=== PATIENT | female | born 1960 | race Caucasian/White ===

== ENCOUNTER 2018-08-09 15:03 | Inpatient (IN) ==
[2018-08-09 15:09] VITALS: BMI 25.0
[2018-08-09] MEDS ORDERED: ZOFRAN 4 MG/2 ML IM STA (15:56)
[2018-08-09] MEDS ORDERED: MORPHINE 4 MG/ML SYRINGE IM STA (15:56)
--- NOTE | 2018-08-09 17:03 | CT ---
EXAM: CT soft tissue neck without contrast HISTORY: Neck pain. The patient with tooth pain. COMPARISON: Same day CT chest abdomen and pelvis TECHNIQUE: Serial axial images of the soft tissues of the neck were obtained without contrast. Thes e were viewed in multiple planes. FINDINGS: There is scattered mucosal thickening of the paranasal sinuses. Limited views of the intra cranial contents are unremarkable. The parotid and submandibular glands are normal. Nasal and oroph arynx are normal. The epiglottis is normal. Airway is patent. The thyroid is unremarkable. There is mild atherosclerotic disease of the visualized arteries. The lungs demonstrate emphysematous dise ase. These are better evaluated on same day CT chest. The osseous structures demonstrate mild degen erative disease. Limited evaluation of the teeth demonstrates no discrete abnormality. The mandible and maxilla are n ormal without cyst or cortical disruption. IMPRESSION: 1. No acute abnormality of the neck to account for patient's symptoms. 2. Paranasal sinus mucosal thickening. 3. Scattered mild degenerative disease of the cervical spine.
--- NOTE | 2018-08-09 17:03 | CT ---
Exam: CT scan of the abdomen pelvis without contrast. Date: 08/09/2018. Comparison: None. HISTORY: Vomiting chills and fever since yesterday. TECHNIQUE: Helical scan of the abdomen pelvis was performed without contrast. FINDINGS: The lung bases are clear. Degenerative changes are seen at L4-5. The bony pelvis is with in normal limits. The spleen and liver have a uniform attenuation. There is a 1.8 x 1.1 cm simple cyst in the left lob e of the liver. A cholecystectomy is noted. The stomach, pancreas and adrenal glands are normal. K idneys have a normal morphology. No calculi or hydronephrosis is seen. No retroperitoneal adenopath y is present. Aorta has peripheral calcification and does not exceed 3 cm. The small bowel is yo l. The colon, pelvic sidewall and bladder are normal. There is no free pelvic fluid. Hysterectomy has been performed. The rectum inguinal regions are normal. Impression: No acute findings in the abdomen or pelvis. Hysterectomy and cholecystectomy. Simple left hepatic cyst.
--- NOTE | 2018-08-09 17:06 | CT ---
EXAM: CT chest without contrast. HISTORY: Cough. PROCEDURE: Contiguous axial CT images of the chest without contrast with coronal and sagittal reform ats. FINDINGS: The heart is within normal limits in size. The thoracic aorta is within normal limits in d iameter. There are mild emphysematous changes in the upper lobes. No infiltrate or consolidation. There are degenerative changes in the spine. There are no acute findings in the visualized portion o f the abdomen. Impression: Mild chronic obstructive pulmonary disease.
[2018-08-09] MEDS ORDERED: ZESTRIL PO STA (17:24)
--- NOTE | 2018-08-09 18:14 | ED.PDOC ---
General ED Provider: Dr. ZACK PATTERSON Chief Complaint: Nausea/Vomiting Stated Complaint: chest pain high blood pressure chest discomfort Time Seen by Physician: 15:00 Mode of Arrival: Walk-In Information Source: Patient Exam Limitations: No limitations Nursing and Triage Documentation Reviewed and Agree: Yes Does patient meet sepsis criteria?: No System Inflammatory Response Syndrome: Not Applicable Sepsis Protocol: For patient's 13 years and over: Temp is 96.8 and below OR 101 and greater Pulse >90 BPM Resp >20/minute Acutely Altered Mental Status Are patient's symptoms suggestive of a new infection, such as: -Pneumonia -Skin, Soft Tissue -Endocarditis -UTI -Bone, Joint Infection -Implantable Device -Acute Abdominal Infection -Wound Infection -Meningitis -Blood Stream Catheter Infection -Unknown Cardiovascular Complaint Exam - Chest Pain Complaint/Exam Onset: Gradual Duration: 1 day Symptoms Are: Still present Timing: Constant Length of Chest Pain Episodes: all day Initial Severity: Moderate Current Severity: Mild Location: Reports: Discrete, Midsternal Pain Radiates: Reports: None (neck/ throat) Character: Reports: Aching Aggravating: Reports: None Alleviating: Reports: Spontaneous resolution Associated Signs and Symptoms: Reports: Nausea, Cough. Denies: Diaphoresis, Vomiting, Fever, Palpitations, Hemoptysis, Back pain, Abdominal pain, Dizziness , Short of air, Calf pain, Calf swelling Related History: Reports: Similar episode Related Surgical History: Reports: None History of Healthcare-Acquired Pneumonia: Reports: No AMI/ACS Risk Factors: Reports: None TAD Risk Factors: Reports: None Pulmonary Embolism Risk Factors: Reports: None Prior Care for this Complaint: No Recent Stress Test: No Recent Echo/LV Function: No JVD Present: No Subcutaneous Emphysema Present: No Diminshed Breath Sounds: No Reproducible Chest Wall Pain: No Bilateral Pulses Present: Yes Unequal Pulses Noted: No Review of Systems - Review Of Systems Constitutional: Reports: Malaise Eyes: Reports: No symptoms Ears, Nose, Mouth, Throat: Reports: Throat pain Respiratory: Reports: No symptoms Cardiac: Reports: Chest pain GI: Reports: No symptoms : Reports: No symptoms Musculoskeletal: Reports: No symptoms Skin: Reports: No symptoms Neurological: Reports: No symptoms Endocrine: Reports: No symptoms Hematologic/Lymphatic: Reports: No symptoms All Other Systems: Reviewed and Negative Past Medical History - Past Medical History Previously Healthy: Yes Endocrine: Reports: None Cardiovascular: Reports: None Respiratory: Reports: None Hematological: Reports: None Gastrointestinal: Reports: None Genitourinary: Reports: None Neuro/Psych: Reports: None Musculoskeletal: Reports: None Cancer: Reports: None Last Menstrual Period: HYSTERECTOMY - Surgical History General Surgical History: Reports: None - Family History Family History: Reports: None - Social History Smoking Status: Former smoker Hx Substance Use: Yes (MARIJUANA) Alcohol Screening: None - Immunizations Tetanus Shot up to Date: No Physical Exam - Physical Exam Appearance: Well-appearing, No pain distress, Well-nourished Eyes: BETTINA, EOMI, Conjunctiva clear ENT: Ears normal, Nose normal, Oropharynx normal Respiratory: Airway patent, Breath sounds clear, Breath sounds equal, Respirations nonlabored Cardiovascular: RRR, Pulses normal, No rub, No murmur GI/: Soft, Nontender, No masses, Bowel sounds normal, No Organomegaly Musculoskeletal: Normal strength, ROM intact, No edema, No calf tenderness Skin: Warm, Dry, Normal color Neurological: Sensation intact, Motor intact, Reflexes intact, Cranial nerves intact, Alert, Oriented Psychiatric: Affect appropriate, Mood appropriate Interpretation - Radiology Interpretation Radiology Interpretation By: Radiologist Radiology Results: No acute changes Exam Interpreted: CT Scan Re-Evaluation - Re-Evaluation Time of Re-Evaluation: 16:00 Status: Improved Vital Signs Stable: Yes Pain Level: 0 Appearance: NAD Lungs: Clear Skin: Warm and Dry Neuro: Alert and Oriented X3 CV: RRR - Re-Evaluation Time of Re-Evaluation: 18:18 Status: Improved Vital Signs Stable: Yes Pain Level: 0 Appearance: NAD Skin: Warm and Dry Neuro: Alert and Oriented X3 CV: RRR (labs/ admission, imaging discussed) Physician Notification - Case Discussed Physician Notified: tee Time of Notification: 18:20 Admit/Transition Orders Entered by ED Provider: Yes Admit To: Inpatient Critical Care Note - Critical Care Note Total Time (mins): 0 Course - Course Hematology/Chemistry: 08/09/18 16:09 08/09/18 16:09 Orders, Labs, Meds: Lab Review 08/09/18 08/09/18 08/09/18 16:09 16:09 16:09 WBC 6.76 RBC 4.57 Hgb 14.8 Hct 43.7 MCV 95.6 MCH 32.4 H MCHC 33.9 RDW Coeff of Nataliia 13.1 Plt Count 291 Immature Gran % (Auto) 0.3 Neut % (Auto) 85.9 Lymph % (Auto) 11.7 Trigg % (Auto) 1.9 Eos % (Auto) 0.1 Baso % (Auto) 0.1 Immature Gran # (Auto) 0.0 Neut # (Auto) 5.8 Lymph # (Auto) 0.8 Trigg # (Auto) 0.1 L Eos # (Auto) 0.0 Baso # (Auto) 0.0 Puncture Site O2 Saturation ABG pH ABG pCO2 ABG pO2 ABG HCO3 ABG Total CO2 ABG Base Excess FiO2 % Sodium 139.7 Potassium 3.93 Chloride 102.8 Carbon Dioxide 20.4 L Anion Gap 20.43 BUN 17.2 H Creatinine 0.81 Estimated GFR (MDRD) 73.00 BUN/Creatinine Ratio 21.23 Glucose 146.2 H Lactic Acid Calcium 9.56 Total Bilirubin 0.61 AST 30.0 ALT 22.7 Alkaline Phosphatase 91.9 Total Creatine Kinase 31.5 Troponin I < 0.012 Total Protein 8.55 H Albumin 4.90 Globulin 3.65 Albumin/Globulin Ratio 1.34 Procalcitonin < 0.05 Urine Color Urine Clarity Urine pH Ur Specific [place] Urine Protein Urine Glucose (UA) Urine Ketones Urine Blood Urine Nitrite Urine Bilirubin Urine Urobilinogen Ur Leukocyte Esterase Urine Microscopic RBC Ur Squamous Epith Cells Urine Mucus 08/09/18 08/09/18 08/09/18 16:09 17:24 17:41 WBC RBC Hgb Hct MCV MCH MCHC RDW Coeff of Nataliia Plt Count Immature Gran % (Auto) Neut % (Auto) Lymph % (Auto) Trigg % (Auto) Eos % (Auto) Baso % (Auto) Immature Gran # (Auto) Neut # (Auto) Lymph # (Auto) Trigg # (Auto) Eos # (Auto) Baso # (Auto) Puncture Site Rr O2 Saturation 96.0 ABG pH 7.411 ABG pCO2 31.2 L ABG pO2 80.0 L ABG HCO3 19.8 L ABG Total CO2 21 L ABG Base Excess -5 L FiO2 % 21.0 Sodium Potassium Chloride Carbon Dioxide Anion Gap BUN Creatinine Estimated GFR (MDRD) BUN/Creatinine Ratio Glucose Lactic Acid 2.86 H Calcium Total Bilirubin AST ALT Alkaline Phosphatase Total Creatine Kinase Troponin I Total Protein Albumin Globulin Albumin/Globulin Ratio Procalcitonin Urine Color Yellow Urine Clarity Clear Urine pH 5.5 Ur Specific [place] >=1.030 Urine Protein 2+ Urine Glucose (UA) Negative Urine Ketones 2+ Urine Blood 2+ Urine Nitrite Negative Urine Bilirubin 1+ Urine Urobilinogen 0.2 Ur Leukocyte Esterase Negative Urine Microscopic RBC 5-10 Ur Squamous Epith Cells 30-50 Urine Mucus 2+ Orders Category Date Time Status ABG DRAW REQUEST Stat CARDIO 08/09/18 17:24 Completed EKG-(ED ONLY) Stat CARDIO 08/09/18 15:57 Completed ABG Stat LAB 08/09/18 17:24 Completed BLOOD CULTURE Stat LAB 08/09/18 16:45 Received CBC W/ AUTO DIFF Stat LAB 08/09/18 16:09 Completed COMPREHENSIVE METABOLIC PANEL Stat LAB 08/09/18 16:09 Completed CREATINE KINASE Stat LAB 08/09/18 16:09 Completed LACTIC ACID Stat LAB 08/09/18 16:09 Completed PROCALCITONIN Stat LAB 08/09/18 16:09 Completed RAPID STREP SCREEN [MOLECULAR GROUP A STREP] Stat LAB 08/09/18 16:20 Completed TROPONIN I Stat LAB 08/09/18 16:09 Completed URINALYSIS C & S IF INDICATED Stat LAB 08/09/18 17:41 Completed Lisinopril [Zestril] MEDS 08/09/18 17:24 Discontinued 40 mg PO ONCE STA Morphine Sulfate [Morphine 4 mg/ml Syringe] MEDS 08/09/18 15:56 Discontinued 4 mg IM ONCE STA Ondansetron HCl/Pf [Zofran 4 mg/2 ml] MEDS 08/09/18 15:56 Discontinued 4 mg IM ONCE STA CT ABDOMEN/PELVIS WO CONTRAST Stat RADS 08/09/18 15:[address] CHEST W/O CONTRAST Stat RADS 08/09/18 15:[address] SOFT TISSUE NECK W/O CONTR Stat RADS 08/09/18 15:56 Completed Medications Discontinued Medications Generic Name Dose Route Start Last Admin Trade Name Freq PRN Reason Stop Dose Admin Lisinopril 40 mg 08/09/18 17:24 08/09/18 17:30 Zestril PO 08/09/18 17:25 40 mg ONCE STA Administration Morphine Sulfate 4 mg 08/09/18 15:56 08/09/18 16:04 Morphine 4 Mg/Ml Syringe IM 08/09/18 15:57 4 mg ONCE STA Administration Ondansetron HCl 4 mg 08/09/18 15:56 08/09/18 16:04 Zofran 4 Mg/2 Ml IM 08/09/18 15:57 4 mg ONCE STA Administration Vital Signs: Temp Pulse Resp BP Pulse Ox 08/09/18 17:49 189/95 H 08/09/18 17:46 78 13 183/112 H 96 08/09/18 15:04 100 F H 68 18 181/107 H 97 LAURO Risk Score LAURO Risk Score: Risk Score Odds of by 30D 0 0.1 (0.1-0.2) 1 0.3 (0.2-0.3) 2 0.4 (0.3-0.5) 3 0.7 (0.6-0.9) 4 1.2 (1.0-1.5) 5 2.2 (1.9-2.6) 6 3.0 (2.5-3.6) 7 4.8 (3.8-6.1) Departure - Departure Time of Disposition: 18:19 Disposition: ADMITTED INPATIENT Discharge Problem: Hypertension, Chest pain Instructions: Chest Pain (ED) Condition: Good Pt referred to PMD for follow-up: Yes IPMP verified?: No Additional Instructions: Please call your Family Physician as soon as possible to schedule a follow-up appointment. Allergies/Adverse Reactions: Allergies No Known Allergies Allergy (Unverified 08/09/18 15:11) Home Medications: Ambulatory Orders Diazepam 10 mg PO QID #100 05/28/18 Estrogen,Starr/Me-Testosterone [Eemt Ds 1.25-2.5 Mg Tablet] 1 each PO DAILY #30 07/30/18 Dicyclomine HCl [Bentyl] 10 mg PO PRN PRN 08/09/18 Sertraline HCl [Zoloft] 200 mg PO DAILY 08/09/18 Disposition Discussed With: Patient, Family
[2018-08-09] MEDS ORDERED: NORVASC PO STA ×2 (18:23→19:10)
--- NOTE | 2018-08-09 19:13 | PCM ---
- Chief Complaint Chief Complaint: Nausea, Vomiting, Elevated blood pressure Stage 2 without diagnosis of HTN, Chest pain, Dental Pain. - History of Present Illness History of Present Illness: 58 yo WF without PCP follows with DR. Dominique ~q 3 months. Last OV 07/30/18 w/ Dr. Dominique had CC of Nasal congestion/ear congestion, refill of meds. She got her Valium 10mg QID #100, Est/test, zoloft 100 BID refilled, had her right ear cerumen removed via suction and was dx w/ vertigo, intractable PADGETT and given augmentin 875/125 1 po BID x 10 days, refills as listed above and instructed to return call in 3 months. Presented to our ED 08/09/18 15:[address] Conrad. Presented with CC of N/V, chest pain HTN and chest discomfort. 1 day history constant pain, moderate severity initially reducing to mild severity. Midsternal, pain radiated into neck/throat. Aching character, nothing has made this worse, spontaneous resolution noted in ER. Reported nausea, cough, no diaphoresis, vomiting, fever, palpitations, hemoptysis, back pain, abd pain, dizzines, SOA, leg/calf pain/swelling. She has had something liek this beore. Malaise, throat pain, chest pain. History of marijuana use. Phys exam in ER noted well appearing, no pain/distress, normal CV, normal Resp exam. Normal MSK , normal Neuro and normal psych. CT of chest w/o mild COPD. DDD w/in spine. CT of Abd/pelvis w/o: Lung bases clear, DDD L4-5. Normal pelvis. No acute findings in abd/pelvis, small hepatic cyst. S/P Hysterectomy, Susannah. Simple left liver cyst. CT scan of the soft tissues neck w/o contrast: No acute abnl of neck to account for patient sx. Scattered DDD w/in cervical spine. Paranasal mucousal thickening. She just completed 10 days course of augmentin as listed above. RE-evaluated by Dr. Conrad 1600 improved noted VS stable, pain level 0, no issues. Re-eval 18:18 status listed as improved, VS stable (but vitals within computer noted that her BP remained >180SBP). REviewed labs from ER. CBC WNL WBC 6.76, Hgb 14.8, hct 43.7, plt 291. CMP normal sodium 139.7, K + nl 3.93, cl 102,8, co2 20.4, gap 20.43. BUN 17.2, cr 0.81. GFR 73. Glucose 146.2. Calcium normal 9.56, ast 30, alt 22.7, alk phos nomfal 91.9. CK noraml 31.5. Troponin #1 was negative. Procalcitonin was negative. Blood cultures ordered/pending. Lactic acid was elevated at 2.86. Urine Mildly concentrated with SG 1.030, 2+ glu, 2+ ketones, 2+ blood, LE negative, squam 30-50, 2+ mucus. We will send urine for culture. ABG in ER showed O2 96%, pH 7.411, pc02 31.2, po2 80, hc03 19.8. ABG favors primary respiratory alkalosis chronic with secondary metabolic acidosis. No mention of ETOH. Due to markedly elevated BP she was given lisinopril 40mg stat, morphine sulfate 4mg im stat, zofran 4mg IM stat and then norvasc 5 stat. Vitals in ER reviewed temp is 100 and technically not febrile. Pulse 68, RR 18, BP 181/107, pulse ox 97%. Repeated at 17:46 and pulse 78, RR 13, BP 183/112, pulse ox 96%. Repeated BP again 17:49 and 189/95. She was admitted to inpatient. I will add clindamycin 300 QID, risks for C. Diff d/w patient. She was admitted to room 109-1. I reviewed nursing notes from ER, Dr. Conrad note, talked w/ Dr. Conrad personally , reviewed imaging, labs, previous note from DR. Dominique. Patient seen in room 109-1 7:30 PM (patient did not arrive until 830). The patient is in room with Jesus Altamirano today. 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 [facility] patient is from [facility] but living here locally after of father 1 year ago. She has been having issues for 1 year since of father, has issues with ailing health of mother. She misses her father. She moved here last yeasr. [place] of [facility] mother called them 1 year ago and noted father was sick. They moved here to be with father and could never go home due to of father and 08/2017. this was traumatic, she has been prominently anxious.They were able to sell their old home and bought a home here and then father before the patient was able to close on that home. The patient now has this home, they have updated this home. Mother hanna continues to have ailing problems. lost income. 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 She quit smoking 6 months ago. Uses marijuana last use of this 4 days ago. She has not had any issues with BP historically. She has had emesis and detnal pain. She was not able to mention a single item in the ER. Story in hospital bed suggests stress , anxiety, palpitations. She felt back pain, muscle aches, chills, sweating. Sx started yesterday am. No other sick contacts. We talked about her marijuana and she notes that this is from a reputable source. She has zofran ordered. She notes nausea persists. She had cardiac cath 3 years ago in [place]. She notes that she had murmurs valvular leaks. They found this when she was having similar symptoms. She noted phenergan suppository helped markedly. She does not drink ETOH. The patient talked about doctor shirley DRIVER. She did take the 10 day course of augmentin. She notes that PCN causes her to throw up. She has a bad tooth. This has been draining down back of throat. She has called dentist they think she can get in on . She hates augmentin, noted that it does not help but it was given to her. No Valium since yesterday. NO other symptoms reported today. Chest heaviness/pressure, anxiety is up. No pain, no aggravating/no ameliorating factors. No SOA. Dental pain / . No purulent drainage. Dry mouth. - Review of Systems Constitutional: chills, weakness, sweats, fatigue, loss of appetite. No: fever Eyes: No: blurred vision, double-vision, discharge, itching, pain, redness, photophobia, other Ears: No: pain, bleeding, drainage, ringing, hearing loss, other Nose: No: bleeding, congestion, discharge, other Throat: pain. No: swelling, voice change, other Mouth: other (dry). No: bleeding, pain, swelling Respiratory: No: cough, shortness of air, wheeze, hemoptysis, pain with breathing, other Cardiovascular: No: chest pain, left arm pain, diaphoresis, PND, orthopnea, edema, palpitations, syncope, other Gastrointestinal: abdominal pain, nausea, vomiting, diarrhea. No: other, melena , hematemesis, hematochezia, dysphagia, constipation Genitourinary: No: dysuria, hematuria, frequency, incontinence, flank pain, vaginal discharge, abnormal bleeding, pelvic pain, other Neurological: dizziness. No: headache, seizure, numbness, weakness, speech difficulty, problems with walking, tremor, fainting, other Musculoskeletal: pain. No: swelling in joints, other Skin: rash (follicular rash groin). No: pruritus, lacerations, wounds, bruising , other Immunology: No: hives, itching, frequent infections, difficulty healing, other Hematology: No: easy bruising, easy bleeding, swollen glands, other Endocrine: No: weight changes, cold intolerance, heat intolerance, excessive thirst, excessive hunger, polyuria, other Psychiatric: anxiety. No: depression, sleeplessness, hopelessness, suicidal, hallucinations, other Habits: substance use (marijuana) - Past Medical History Past Medical History: Anxiety (zoloft and valium QID). Marijuana use sporadically. History of jaw fracture on left. She has poor dentition. - Past Surgical History Past Surgical History: Susannah, appendectomy, hysterectomy, abdominal cyst removal. . Tonsillectomy. Corbin Neuroma - Allergies Allergies/Adverse Reactions: Allergies Allergy/AdvReac Type Severity Reaction Status Date / Time No Known Allergies Allergy Unverified 08/09/18 15:11 - Medications Medications: Medications Generic Name Dose Route Start Last Admin Trade Name Freq PRN Reason Stop Dose Admin Sodium Chloride 1,000 mls @ 75 mls/hr 08/09/18 18:30 Sodium Chloride IV .[id number] JULIENNE Non-Formulary Medication 10 mg 08/09/18 21:00 Diazepam [Diazepam] PO QID JULIENNE Non-Formulary Medication 200 mg 08/10/18 09:00 Sertraline Hcl [Zoloft] PO DAILY [facility] - Family History Past Family History: Mother: Anxiety, depression, CAD, HTN. Father: Depression , CAD, Emphysema/. No children. - Social History Past Social History: . Jesus lAtamirano. 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 - Body Composition Height: 5 ft 7 in Weight: 160 lb 0.889 oz Body Mass Index (BMI): 25.0 - Physical Examination HEENT: Constitutional: Appearance-No acute distress, Consistent with stated age. Orientation- Oriented x 3, alertGait-Normal pace, normal arm movement. Build and Nutrition-[normal] General- Patient is pleasant and cooperative with the interview and exam. Integumentary: General-No rashes, ulcers or lesions. Palpation- Normal skin moisture/turgor. Skin is warm to touch, appropriate. Capillary refill is normal bilateral Upper and lower extremity. Follicular eruption under breast on left, bilateral inner thigh. Nurse Smita present. Pubis shaved by patient. Follicular eruption there as well. Papular/vessicular eruption. The patient has no skin breakdown buttock, heels. No other skin issues. Tattoo lower back. Head/Neck: Head- normocephalic and atraumatic. Neck- without visible/palpable lumps or pulsations. Palpation- No bony tenderness about head/neck along frontal, occipital, temporal, parietal, mastoid, jawline, zygoma, orbit or any other location. NO temporal artery tenderness. No TMJ tenderness. Neck Supple. Thyroid-No thyromegaly, no nodules Eye: Bilaterally PERRLA, EOMI. No discharge. Upper and lower eyelids are normal. Sclera/conjunctiva normal without discharge. Cornea is normal and clear. Lens is normal. Eyeball appears normal. No ciliary flushing, no conjunctival injection. ENMT: Pinna- normal without tenderness or erythema. External auditory canal Left- normal without erythema or discharge, no excessive cerumen. External auditory canal Right-normal without erythema or discharge, no excessive cerumen. TM left- Heart/pearly, normal light reflex and anatomy TM Right- Heart/ pearly, normal light reflex and anatomy Hearing Assessment-normal to conversational speech. Nose and sinus- No sinus tenderness along frontal/ maxillary region. External appearance normal and midline. Nares- bilateral quiet airflow, no discharge. Nasal mucosa- No bleeding noted and no ulcerations observed. [place], moist. Turbinates non boggy. Lips- normal color, moist without cracks/lesions Oral Cavity/Palate- hard/soft palate intact without lesions, oral mucosa pink and moist. Dentition assessed and upper teeth appear capped. Lower teeth pain along mandibular molar. No obvious sores, no lesions. and discussed appropriate oral care. Tongue normal midline. Oropharynx- no pharyngeal erythema, Uvula midline. No post nasal drip. No exudate. Salivary glands- Non tender to palpation CHEST/LUNG: Inspection- symmetric chest wall no pectus deformity. Normal effort , no distress, no use of accessory muscles. Palpation- nontender sternum, ribline. No abnormal pulsations. Auscultation- Breath sounds normal throughout all lung krishnamurthy. Normal tracheal sounds, Normal bronchial sounds overlying sternum, Bronchovessicular sounds normal between scapulae posteriorly, Normal vessicular breath sounds heard throughout periphery. Lungs are clear today. Adventitious sounds- No wheezes, rales, rhonchi. CARDIOVASCULAR: Carotid artery- normal, no bruits or abnormal pulsations. Jugular vein- no pulsations. Palpation/Percussion- Normal PMI, no palpable thrill Auscultation- Regular rate and rhythm. No murmur noted in sitting, supine positions. Distant heart sounds, PMI not displaced. She reported history of murmurs. Prolonged S1 sounds and muffled S2 but no obvious murmur. No clicks, no fixed split etc. Extremities- no digital clubbing, cyanosis, edema, increased warmth. ABDOMEN: Inspection- normal and no visible pulsations. Normal contour. Auscultation- Bowel sounds hyperactive, no abdominal bruits. Palpation/ Percussion- soft, non-tender, no rebound tenderness, no rigidity (guarding), no jar tenderness, no masses. Liver-no hepatomegaly, Spleen no splenomegaly, Hernias- none. Rectal not examined. Peripheral Vascular: Upper extremity Left- Normal temperature with pink nailbeds and no ulcerations. Upper extremity Right- Normal temperature with pink nailbeds and no ulcerations. Lower extremity- Normal temperature with pink nailbeds and no ulcerations. DP pulses 2+ bilaterally. Pedal hair intact. Normal capillary refill. Edema- No edema. Musculoskeletal: Generalized-No generalized swelling or edema of extremities, no digital clubbing or cyanosis, neurovascularly intact all four extremities. Upper extremity- Symmetrical posture. No visible deformity. Normal sensation along medial and lateral upper extremity proximally and distally. NO tenderness overlying shoulder, lateral/medial epicondyle. Spiral Gear Generator 5/5 and strength 5/5 bilateral UE. Elbow palpated, no tenderness overlying olecranon. Normal supination, pronation to active/passive ROM and to resisted rotation. Bicep insertion/tricep insertion appear normal without obvious pathology. Rotator cuff evaluated and intact. Normal wrist ROM bilaterally. Normal hand movement, intrinsic muscles of hands normal. No tenderness to palpation of hands/wrists/ elbows. Lower extremity- Hip: Not tender to palpation, no pain, no swelling, edema or erythema of surrounding tissue, normal strength and tone. Normal appearing hip ROM bilaterally without pain. Knee: Knee ROM normal. No tenderness overlying trochanters, no tenderness about patella, quad tendon, patellar tendon. No tenderness at tibial tuberosity. Ankle: normal ROM not tender to palpation along medial/lateral malleolus. Foot: Normal movement of toes, no tenderness bilateral feet/toes. Normal foot type. Spine/Ribs- No deformities, masses or tenderness, no known fractures, normal strength, Normal ROM. Normal stability No tenderness along C/T/L spine. Normal appearing ROM about spine. Neurological: General- Moves all 4 extremities symmetrically. Symmetrical face and body posture. Cranial nerves- individually evaluated II-XII and intact. PERRLA, Normal EOMI, visual/special senses appear intact, Face is symmetrical and normal sensation/movement, normal tongue, normal strength/posture of neck musculature. Reflexes- intact with DTR 2+ patellar, Achilles, bicep, brachial, tricep. Ankle clonus normal with 2 beats. Strength- 5/5 bilateral UE and LE. Soft touch- intact bilateral UE and LE. Temperature sensation- intact bilateral UE and LE. Neuropsych: Oriented- Person, place, time. (AAOx3), Mood/affect- sad and cycling. ?morphine effect from ER. Able to articulate well, good use of language, pleasant. Speech-Normal speech, normal rate, normal tone, normal use of language, volume and coherence. Thought content- normal with ability to perform basic computations and apply abstract thought/reason. Associations- intact, no SI/HI, no hallucinations, delusions, obsessions. Judgment/insight- Appropriate. Memory-Recall intact, remote and recent memory intact. Knowledge- Age appropriate fund of knowledge, concentration and attention span normal. Lymphatic: Head/Neck- normal size and non tender to palpation. Axillary- normal size and non tender to palpation. Femoral and Inguinal- normal size and non tender to palpation. - Lab/Tests/Diagnostic Imaging Lab/Tests/Diagnostic Imaging: Laboratory Last Values WBC 6.76 K/ul (4.6-10.2) 08/09/18 16:09 RBC 4.57 10^6/ul (4.20-5.40) 08/09/18 16:09 Hgb 14.8 g/dl (12.0-16.0) 08/09/18 16:09 Hct 43.7 % (37.0-47.0) 08/09/18 16:09 MCV 95.6 fl (81.0-99.0) 08/09/18 16:09 MCH 32.4 pg (27.0-31.0) H 08/09/18 16:09 MCHC 33.9 (31.8-35.4) 08/09/18 16:09 RDW Coeff of Nataliia 13.1 % (11.6-14.8) 08/09/18 16:09 Plt Count 291 10^3/uL (140-440) 08/09/18 16:09 Immature Gran % (Auto) 0.3 % (0.0-5.0) 08/09/18 16:09 Neut % (Auto) 85.9 08/09/18 16:09 Lymph % (Auto) 11.7 (10.0-50.0) 08/09/18 16:09 [place] % (Auto) 1.9 (0-10) 08/09/18 16:09 Eos % (Auto) 0.1 % (0.0-7.0) 08/09/18 16:09 Baso % (Auto) 0.1 % (0.0-3.0) 08/09/18 16:09 Immature Gran # (Auto) 0.0 (0.0-1.0) 08/09/18 16:09 Neut # (Auto) 5.8 K/ul (2.0-6.9) 08/09/18 16:09 Lymph # (Auto) 0.8 K/uL (0.60-3.4) 08/09/18 16:09 [place] # (Auto) 0.1 K/uL (0.4-2.0) L 08/09/18 16:09 Eos # (Auto) 0.0 K/ul (0.0-0.7) 08/09/18 16:09 Baso # (Auto) 0.0 K/uL (0-0.2) 08/09/18 16:09 Puncture Site Rr 08/09/18 17:24 O2 Saturation 96.0 % (95-100) 08/09/18 17:24 ABG pH 7.411 (7.35-7.45) 08/09/18 17:24 ABG pCO2 31.2 mmHg (35-45) L 08/09/18 17:24 ABG pO2 80.0 mmHg (85-100) L 08/09/18 17:24 ABG HCO3 19.8 (22.0-26.0) L 08/09/18 17:24 ABG Total CO2 21 (22.0-28.0) L 08/09/18 17:24 ABG Base Excess -5 (-2.0-2.0) L 08/09/18 17:24 FiO2 % 21.0 % 08/09/18 17:24 Sodium 139.7 mmol/L (134.5-145) 08/09/18 16:09 Potassium 3.93 mmol/L (3.5-5.1) 08/09/18 16:09 Chloride 102.8 mmol/L (98-107) 08/09/18 16:09 Carbon Dioxide 20.4 mmol/L (22-30.0) L 08/09/18 16:09 Anion Gap 20.43 08/09/18 16:09 BUN 17.2 mg/dL (7-17) H 08/09/18 16:09 Creatinine 0.81 mg/dL (0.60-1.30) 08/09/18 16:09 Estimated GFR (MDRD) 73.00 mL/min 08/09/18 16:09 BUN/Creatinine Ratio 21.23 08/09/18 16:09 Glucose 146.2 mg/dL (74-106) H 08/09/18 16:09 Hemoglobin A1c 5.15 (4.0-6.0) 08/09/18 19:40 Lactic Acid 2.15 mmol/L (0.7-2.1) H D 08/09/18 19:40 Calcium 9.56 mg/dL (8.4-10.2) 08/09/18 16:09 Total Bilirubin 0.61 mg/dL (0.2-1.3) 08/09/18 16:09 AST 30.0 U/L (14-36) 08/09/18 16:09 ALT 22.7 U/L (0-35) 08/09/18 16:09 Alkaline Phosphatase 91.9 U/L (38-126) 08/09/18 16:09 Total Creatine Kinase 31.5 U/L (30-135) 08/09/18 16:09 Troponin I < 0.012 ng/ml (0.0000-0.120) 08/09/18 16:09 Total Protein 8.55 g/dL (6.3-8.2) H 08/09/18 16:09 Albumin 4.90 g/dL (3.5-5.0) 08/09/18 16:09 Globulin 3.65 08/09/18 16:09 Albumin/Globulin Ratio 1.34 08/09/18 16:09 Procalcitonin < 0.05 ng/mL (0.09) 08/09/18 16:09 Urine Color Yellow (YELLOW) 08/09/18 17:41 Urine Clarity Clear (CLEAR) 08/09/18 17:41 Urine pH 5.5 (5-9) 08/09/18 17:41 Ur Specific Ralls >=1.030 (1.005-1.030) 08/09/18 17:41 Urine Protein 2+ (NEGATIVE) 08/09/18 17:41 Urine Glucose (UA) Negative (NEGATIVE) 08/09/18 17:41 Urine Ketones 2+ (NEGATIVE) 08/09/18 17:41 Urine Blood 2+ (NEGATIVE) 08/09/18 17:41 Urine Nitrite Negative (NEGATIVE) 08/09/18 17:41 Urine Bilirubin 1+ (NEGATIVE) 08/09/18 17:41 Urine Urobilinogen 0.2 (0.2) 08/09/18 17:41 Ur Leukocyte Esterase Negative (NEGATIVE) 08/09/18 17:41 Urine Microscopic RBC 5-10 (0-2) 08/09/18 17:41 Ur Squamous Epith Cells 30-50 (0-5) 08/09/18 17:41 Urine Mucus 2+ (NOT PRESENT) 08/09/18 17:41 Plasma/Serum Alcohol < 10.0 mg/dL (0.0-50.0) 08/09/18 19:40 CT of chest w/o mild COPD. DDD w/in spine. CT of Abd/pelvis w/o: Lung bases clear, DDD L4-5. Normal pelvis. No acute findings in abd/pelvis, small hepatic cyst. S/P Hysterectomy, Susannah. Simple left liver cyst. CT scan of the soft tissues neck w/o contrast: No acute abnl of neck to account for patient sx. Scattered DDD w/in cervical spine. Paranasal mucousal thickening. - Assessment (1) Chest pain Status: Acute Code(s): R07.9 - CHEST PAIN, UNSPECIFIED SNOMED Code(s): 08605899 (2) Chronic prescription benzodiazepine use Status: Acute Code(s): Z79.899 - OTHER PRISON (CURRENT) DRUG THERAPY SNOMED Code(s): 476629023 (3) Marijuana use Status: Acute Code(s): F12.90 - CANNABIS USE, UNSPECIFIED, UNCOMPLICATED SNOMED Code(s): 914895478 (4) Former smoker Status: Acute Code(s): Z87.891 - PERSONAL HISTORY OF NICOTINE DEPENDENCE SNOMED Code(s): 9243324 (5) Anxiety Status: Acute Code(s): F41.9 - ANXIETY DISORDER, UNSPECIFIED SNOMED Code(s) : 39527350 (6) Nausea and vomiting Status: Acute Code(s): R11.2 - NAUSEA WITH VOMITING, UNSPECIFIED SNOMED Code (s): 86270062 (7) History of cardiac murmur Status: Acute Code(s): Z86.79 - PERSONAL HISTORY OF OTHER DISEASES OF THE CIRCULATORY SYSTEM SNOMED Code(s): 986312309 (8) Elevated blood pressure reading without diagnosis of hypertension Status: Acute Code(s): R03.0 - ELEVATED BLOOD-PRESSURE READING, W/O DIAGNOSIS OF HTN SNOMED Code(s): 362978099 (9) Lactic acidosis Status: Acute Code(s): E87.2 - ACIDOSIS SNOMED Code(s): 69774286 - Plan Plan: Nausea and Vomiting/ Elevated Lactic Acid:Ddx considered include: Gastroenteritis (viral and non viral), Gastritis, Colitis, IBS, antibiotic reaction to the augmentin that she has recently taken, withdrawal from benzo, withdrawal from zoloft, stress/anxiety. We talked about travel, about personal/ social history and symptoms. No red flags. She has not had her BZO or her zoloft in 24 hours. No ETOH pe rher report. We checked this and it was negative. UA had some debris and culture sent. Blood culture sent. She noted that she has had this before (when they discovered her murmur and phenergan supp worked amazingly well. She has since had her BZO, she has had her zoloft, she had zofran, this did not help. We will order phenergan supp for her. She has no allergy to PCN. We discussed her symptoms may be from use of abx and GI irritability but the timeframe is odd for her not using BZO and SSRI in last 24 hours. I asked about the recent use of marijuana 4 days ago. She said it was clean/pure and not tainted. Vague symptoms, anxiety up, stress up, chest pain reported but I question the diagnosis. She has dental pain. We have talked about antibiotics. We talked about IV vs PO. We will opt for PO clinda QID as this is reasonable rx to d/c her with dental related issues. Just finished augmentin 10 days. NO urinary symptoms, no diarrhea. Risks of C.diff reviewed at length today with her and . ETOH negative. BC pending. Urine culture ordered. A1C not diabetic. - Admit inpatient - CBC/CMP in am/Urine culture - Overnight Tele - Am stress echo and echocardiogram - NPO after midnight - Phenergan suppository per patient request. - Vitals q 8 hours -I+O Dental pain: She has finished oral augmentin. We reviewed IV options, she does not want to stay beyond tomorrow as she does not want to miss work. Discussed options. Oral clinda is reasonable. However risks of C. diff are highly possible for this abx. She is aware. - Oral clinda QID x 7 days. - Rinse with peroxide/water at d/c. Chest pain (Acute): DDX for chest pain is vast. We discussed typical examination in history findings for chest pain and heart attack today. We discussed that multiple organ systems can be the cause for this complaint. We reviewed possible causes to include cardiac etiologies: ACS, pericarditis, pericardial effusion, respiratory issues to include bronchitis/asthma/COPD/ bronchospasm, PE (No SOA, no MOREL, LOW LIKELIHOOD OF PE/DVT based on Wells score 0 (1.3%)), GI problems to include esophageal spasm/achalasia, Hiatal hernia, GERD, PUD, Liver disease/pancreatic disease, renal disease. Will check labs as listed. We discussed risks and benefits to getting EKG today, we reviewed aspirin and nitroglycerin. - Stress test in am dobutamine - NPO post midnight. Anxiety (Chronic)/Chronic prescription benzodiazepine use (Chronic):DDx reviewed today include depression, Panic disorder, hypochondriasis, OCD, adjustment disorder and medical concerns to include thyroid disease hyperthyroidism, substance abuse. We discussed the difference between generalized anxiety and panic. Reviewed typical symptoms of panic. Discussed lab evaluation. Diagnostic criteria for SUZANNE reviewed. No history of unexplained weight loss, cognitive decline/changes. Reviewed DSM 5. Anxiety Dx is based on presence of generalized, persistent and excessive anxiety and a combination of various psychological and physical complaints. This disturbance cannot be attributed to physiological effects of substance or medical problem. SSRI: Reviewed pros/cons of these today. Reviewed black box warning, reviewed major side effects and handout provided on new Rx. Discussed can take up to 6 weeks to fully be effective. Discussed first 2 weeks are most worrisome for worsening of anxiety symptoms. She has missed this in last 24 hours. Reviewed can have dizziness, PADGETT, tingling fingles, insomnia, vivid dreams nightmares, anxiety worsening, irritability, N/V as listed above, shakiness from withdrawal. She stated it was not from that. Chronic benzo use: Reviewed these are highly addictive and have potential for abuse. These work on MAGNOLIA receptors and can cause sedation. We discussed rebound/worsening anxiety, panic , irritbility, insomnia, sweating,PADGETT, muscle pain and stiffness, poor concentration. This may explain the HTN and may explain the lactate. - Resume home zoloft - Resume home dose of valium - Monitor BP - ETOH was negative Elevated Blood pressure without history of HTN: lisinopril 40 in ER, norvasc 5 on floor. Will give another 5 in am if >160. With ?withdrawl from BZO an option and ?SSRI withdrawal as possibility. We will continue to monitor overnight. - Telemetry - Vitals q 8 hours Folliculitis: Breast and inner thighs. Bactroban topically TID. Clindamycin for oral hygiene/concern for tooth pathology started. - Bactroban topical TID - Bactroban under nails daily - Clindamycin for tooth related concern 300mg QID x 7 days will cross cover Former smoker (Chronic) History of cardiac murmur (Chronic): No obvious murmur noted today. Will get echo in am. Stress test in am. - Echocardiogram - Dobutamine stress test. Marijuana use (Acute): Marijuana Cessation discussed today for 2 minutes. We reviewed lifestyle choices and discussed quitting. Ready to quit status discussed. The risks and hazards of continued marijuana abuse were discussed with the patient today and total cessation was recommended. It was clearly and unambiguously explained that continued smoking of anything to include marijuana/ tobacco usage will adversely affect overall morbidity and mortality of the patient. Patient was informed that tobacco use can lead to numerous cancers, worsening of cardiovascular and pulmonary systems and that lung damage is often permanent and irreversible. CT scan suggested mild COPD. She cried about that. DVT Prophy: Lovenox 40mg subcutaneous. Code status: Full Code Activity: Up ad jaqueline. Disposition: Estimated length of stay 1-2 days. Spent >70 minutes today on this admission. Discussed care as listed above, history from Dr. Conrad, reviewed note from Dr. Dominique. Home med rec completed, Imaging/labs reviewed with patient and . F/U with patient in am.
[2018-08-09] MEDS ORDERED: VALIUM ONE (20:11)
[2018-08-09] MEDS: SODIUM CHLORIDE 1,000 ML IV SCH (20:21)
[2018-08-09] MEDS ORDERED: BENTYL PO PRN (20:41)
[2018-08-09] MEDS ORDERED: PHENERGAN SUPP RC PRN (20:46)
[2018-08-09] MEDS ORDERED: NON-FORMULARY MEDICATION (Diazepam [Diazepam] 10 MG) PO SCH (21:00)
[2018-08-09] MEDS ORDERED: LOVENOX SUBCUT SCH (21:30)
[2018-08-09] MEDS: CLEOCIN PO SCH (22:15)
[2018-08-09] MEDS: BACTROBAN TP SCH (22:16)
[2018-08-10] MEDS: CLEOCIN PO SCH ×3 (00:38→13:01)
[2018-08-10 05:09] VITALS: BP 92/68; TEMP 97.5
[2018-08-10] MEDS: BACTROBAN TP SCH (08:16)
[2018-08-10] MEDS: VALIUM PO SCH ×2 (08:16→13:02)
[2018-08-10] MEDS ORDERED: ZOLOFT PO SCH (09:00)
[2018-08-10] MEDS ORDERED: ESTROGEN ESTER PO SCH (09:00)
[2018-08-10] MEDS ORDERED: [UNRECOGNIZED DRUG - OTHER] PO SCH (09:00)
[2018-08-10] MEDS ORDERED: NON-FORMULARY MEDICATION (Sertraline Hcl [Zoloft] 200 MG) PO SCH (09:00)
[2018-08-10] MEDS ORDERED: NORVASC PO SCH ×2 (09:00)
[2018-08-10] MEDS ORDERED: TESTOSTERONE PO SCH (09:00)
[2018-08-10] MEDS: SODIUM CHLORIDE 1,000 ML IV SCH (09:10)
--- NOTE | 2018-08-10 09:30 | PCM.PROG ---
Subjective: 58 yo WF hospital day #2 N/V (72 hours decreased PO intake and N/V), Chest pain , elevated blood pressure dental pain, follicular rash. Labs reviewed this am showed continued normal CBC with WBC 9.65 up from 6.76. Hgb stable 14.0 compared to 14.8 yesterday. Plt 305 up from 291. She has received NS 75ml/hour , lovenox 40 subcut daily. SHe presented with BP of 181/107, 183/112, 189/95 and was given 40mg lisinopril in ER and then 5 of norvasc. I ordered 5 more for this am if she remained >160 SBP. After morphine in ER, zofran, resuming home doses of her zoloft and valium, her BP dropped to 86/58 at 0039 and then increased to 92/68 at 05:08. I will not give any more BP meds while here. She likely had elevated BP due to some withdrawal from her SSRI and BZO. She has remained afebrile throughout entire evaluation (100 in ER). Telemtry strips reviewed and agree that she has essentially been in SR entire stay, ?BBB this am. Chest pain present at admit, N/V multiple times before hospital, now again this am coughing and emesis are present. She feels subjectively hot. CMP this am showed mildly low K+ that I will add to fluids as she is NPO for stress/ stress echo. She has had 3 sets of cardiac enzymes all negative <0.012 for TI and CK up to 40.6, but okay. Repeat lactic acid was 2.15 (normal 2.1). ETOH was negative serum. Urine culture too young to read. Blood cultures have not returned. I have started clinda for her tooth pain. A1C was 5.15 and normal. Other than N/V now, she seems to be doing better. Folliculitis is already improving with bactroban. No additional imaging at this time. Pain in chest is a 2/10 and achy/crampy, which may be from the N/V. She has had this before. She was told to see GI then but never went. Stomach contents in Emesis, non bloody. ?PUD, ?Gastritis, ?Gastroenteritis. Vitals stable, Uout measured once at 500 provided 0.87ml/kg/hour output which is reasonable. I have no other concerning issues at this time. BP has recovered and is improving. She is due for stress and stress echo this am. When those are complete and negative, we will d/c home with rx for phenergan supp and f/u with PCP this coming week. She wants d/c wants to work tomorrow. Notes stress is up and she carries stress in her abdomen. jeff not present today. [place] present during entirey of encounter. REVIEW OF SYMPTOMS: (Positives bolded) General: weight loss, fever, chills, night sweats, fatigue, appetite loss HEENT: blurry vision, eye pain, eye discharge, dry eyes, decreased vision, sore throat (STREP NEG), tinnitus, bloody nose, hearin gloss, sinus pain/ pressure, ear pain/pressure. Respiratory: shortness of breath, cough, hemoptysis, wheezing, pleurisy, Cardiovascular: chest pain (History of murmur, none appreciated), PND, palpitation, edema, orthopnea, syncope, swelling of extremities Gastro: Nausea, vomiting, diarrhea (NOT YET ), hematemesis, abdominal pain, constipation, RECENT ABX USE AUGMENTIN X 10 days Genito: hematuria, dysuria, glycosuria, hesitancy, frequency, incontinence [place]: Arthralgia, myalgia, muscle weakness, joint swelling, NSAID use Skin: rash, pruritis, sores, nail changes, skin thickening, change in wart/mole , itching, rash, new lesions, pruritus, nail changes Neuro: Migraine, numbness, ataxia, tremor, vertigo, weakness, memory loss, Irritability, dizziness Endocrine: excessive thirst, polyuria, cold intolerance, heat intolerance, goiter Psychiatric: depression, anxiety, anti-depressants, alcohol abuse, Marijuana use , insomnia, change in sleep pattern and mood changes Heme/lymph: easy bruising, bleeding gums, blood clots, swollen glands, lymphedema, Allergic/immune: allergic rhinitis, hay fever, asthma, hives Objective: Vital Signs - 24 hr 08/09/18 08/09/18 08/09/18 15:04 17:46 17:49 Temperature 100 F H Pulse Rate 68 78 Pulse Rate [ Apical] Respiratory 18 13 Rate Blood Pressure 181/107 H 183/112 H 189/95 H O2 Sat by Pulse 97 96 Oximetry 08/09/18 08/09/18 08/10/18 18:20 20:05 00:39 Temperature 97.7 F Pulse Rate 76 Pulse Rate [ 78 Apical] Respiratory 20 Rate Blood Pressure 168/83 H 86/58 L O2 Sat by Pulse 98 Oximetry 08/10/18 05:08 Temperature 97.5 F L Pulse Rate 87 Pulse Rate [ Apical] Respiratory 18 Rate Blood Pressure 92/68 O2 Sat by Pulse 96 Oximetry Constitutional: Appearance-Sitting up in bed, vomiting. She had emesis basin and had green/yellow/frothy/mucoid stomach contents/mucus. No respiratory distress, Consistent with stated age. Orientation- Oriented x 3, alert Build and Nutrition-[normal] General- Patient is pleasant and cooperative with the interview and exam. Talked about noy, aqueducts, talked about history as she likes history. Integumentary: General-No generalized rashes, groin follicular eruption bilateral inner thigh and suprapubic region improving already with the bactroban. She has improvement left underbreast region as well. Normal skin turgor. ENMT: Nasal mucosa- No bleeding noted and no ulcerations observed. [place], moist. Turbinates non boggy. Lips- normal color, moist without cracks/lesions Oral Cavity/Palate- hard/soft palate intact without lesions, oral mucosa pink and moist. Dentition assessed and upper teeth appear capped. Lower teeth pain along mandibular molar. 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 No obvious sores, no lesions. and discussed appropriate oral care. Tongue normal midline. Oropharynx- no pharyngeal erythema, Uvula midline. No post nasal drip. No exudate. Salivary glands- Non tender to palpation CHEST/LUNG: Inspection- symmetric chest wall no pectus deformity. Normal effort , no distress, no use of accessory muscles. Palpation- nontender sternum, ribline. No abnormal pulsations. Auscultation- Breath sounds normal throughout all lung krishnamurthy. Normal tracheal sounds, Normal bronchial sounds overlying sternum, Bronchovessicular sounds normal between scapulae posteriorly, Normal vessicular breath sounds heard throughout periphery. Lungs are clear today. Adventitious sounds- No wheezes, rales, rhonchi. CARDIOVASCULAR: Palpation/Percussion- Normal PMI, no palpable thrill. Auscultation- Still w/o murmur appreciable on exam. Regular rate and rhythm. No murmur noted in sitting, supine positions. PMI not displaced. MIldly Prolonged S1 sounds and muffled S2 but no obvious murmur. No clicks, no fixed split etc. Extremities- no digital clubbing, cyanosis, edema, increased warmth. ABDOMEN: Inspection- normal and no visible pulsations. Normal contour. Auscultation- Bowel sounds hyperactive, no abdominal bruits. Palpation/ Percussion- soft, non-tender, no rebound tenderness, no rigidity (guarding), no jar tenderness, no masses. Liver-no hepatomegaly, Spleen no splenomegaly, Hernias- none. Rectal declined by patient. Peripheral Vascular: Upper extremity Left- Normal temperature with pink nailbeds and no ulcerations. Upper extremity Right- Normal temperature with pink nailbeds and no ulcerations. Lower extremity- Normal temperature with pink nailbeds and no ulcerations. DP pulses 2+ bilaterally. Pedal hair intact. Normal capillary refill. Edema- No edema. Musculoskeletal: Generalized-No generalized swelling or edema of extremities, no digital clubbing or cyanosis, neurovascularly intact all four extremities. Neurological: General- Moves all 4 extremities symmetrically. Symmetrical face and body posture. Cranial nerves- individually evaluated II-XII and intact. PERRLA, Normal EOMI, visual/special senses appear intact, Face is symmetrical and normal sensation/movement, normal tongue, normal strength/posture of neck musculature. Neuropsych: Oriented- Person, place, time. (AAOx3), Mood/affect- sad and cycling. ?morphine effect from ER. Able to articulate well, good use of language, pleasant. Speech-Normal speech, normal rate, normal tone, normal use of language, volume and coherence. Thought content- normal with ability to perform basic computations and apply abstract thought/reason. Associations- intact, no SI/HI, no hallucinations, delusions, obsessions. Judgment/insight- Appropriate. Memory-Recall intact, remote and recent memory intact. Knowledge- Age appropriate fund of knowledge, concentration and attention span normal. Lymphatic: Head/Neck- normal size and non tender to palpation. Laboratory Last Values WBC 9.65 K/ul (4.6-10.2) 08/10/18 08:32 RBC 4.32 10^6/ul (4.20-5.40) 08/10/18 08:32 Hgb 14.0 g/dl (12.0-16.0) 08/10/18 08:32 Hct 40.6 % (37.0-47.0) 08/10/18 08:32 MCV 94.0 fl (81.0-99.0) 08/10/18 08:32 MCH 32.4 pg (27.0-31.0) H 08/10/18 08:32 MCHC 34.5 (31.8-35.4) 08/10/18 08:32 RDW Coeff of Nataliia 13.0 % (11.6-14.8) 08/10/18 08:32 Plt Count 305 10^3/uL (140-440) 08/10/18 08:32 Immature Gran % (Auto) 0.2 % (0.0-5.0) 08/10/18 08:32 Neut % (Auto) 65.5 08/10/18 08:32 Lymph % (Auto) 26.3 (10.0-50.0) 08/10/18 08:32 [place] % (Auto) 7.0 (0-10) 08/10/18 08:32 Eos % (Auto) 0.8 % (0.0-7.0) 08/10/18 08:32 Baso % (Auto) 0.2 % (0.0-3.0) 08/10/18 08:32 Immature Gran # (Auto) 0.0 (0.0-1.0) 08/10/18 08:32 Neut # (Auto) 6.3 K/ul (2.0-6.9) 08/10/18 08:32 Lymph # (Auto) 2.5 K/uL (0.60-3.4) 08/10/18 08:32 [place] # (Auto) 0.7 K/uL (0.4-2.0) 08/10/18 08:32 Eos # (Auto) 0.1 K/ul (0.0-0.7) 08/10/18 08:32 Baso # (Auto) 0.0 K/uL (0-0.2) 08/10/18 08:32 Puncture Site Rr 08/09/18 17:24 O2 Saturation 96.0 % (95-100) 08/09/18 17:24 ABG pH 7.411 (7.35-7.45) 08/09/18 17:24 ABG pCO2 31.2 mmHg (35-45) L 08/09/18 17:24 ABG pO2 80.0 mmHg (85-100) L 08/09/18 17:24 ABG HCO3 19.8 (22.0-26.0) L 08/09/18 17:24 ABG Total CO2 21 (22.0-28.0) L 08/09/18 17:24 ABG Base Excess -5 (-2.0-2.0) L 08/09/18 17:24 FiO2 % 21.0 % 08/09/18 17:24 Sodium 138.6 mmol/L (134.5-145) 08/10/18 08:32 Potassium 3.08 mmol/L (3.5-5.1) L 08/10/18 08:32 Chloride 104.1 mmol/L (98-107) 08/10/18 08:32 Carbon Dioxide 22.5 mmol/L (22-30.0) 08/10/18 08:32 Anion Gap 15.08 08/10/18 08:32 BUN 13.7 mg/dL (7-17) 08/10/18 08:32 Creatinine 0.82 mg/dL (0.60-1.30) 08/10/18 08:32 Estimated GFR (MDRD) 72.00 mL/min 08/10/18 08:32 BUN/Creatinine Ratio 16.70 08/10/18 08:32 Glucose 107.5 mg/dL (74-106) H 08/10/18 08:32 Hemoglobin A1c 5.15 (4.0-6.0) 08/09/18 19:40 Lactic Acid 2.15 mmol/L (0.7-2.1) H D 08/09/18 19:40 Calcium 8.85 mg/dL (8.4-10.2) 08/10/18 08:32 Total Bilirubin 0.70 mg/dL (0.2-1.3) 08/10/18 08:32 AST 25.1 U/L (14-36) 08/10/18 08:32 ALT 17.5 U/L (0-35) 08/10/18 08:32 Alkaline Phosphatase 80.1 U/L (38-126) 08/10/18 08:32 Total Creatine Kinase 40.6 U/L (30-135) 08/10/18 08:32 Troponin I < 0.012 ng/ml (0.0000-0.120) 08/10/18 08:32 Total Protein 7.50 g/dL (6.3-8.2) 08/10/18 08:32 Albumin 4.31 g/dL (3.5-5.0) 08/10/18 08:32 Globulin 3.19 08/10/18 08:32 Albumin/Globulin Ratio 1.35 08/10/18 08:32 Procalcitonin < 0.05 ng/mL (0.09) 08/09/18 16:09 Urine Color Yellow (YELLOW) 08/09/18 17:41 Urine Clarity Clear (CLEAR) 08/09/18 17:41 Urine pH 5.5 (5-9) 08/09/18 17:41 Ur Specific [place] >=1.030 (1.005-1.030) 08/09/18 17:41 Urine Protein 2+ (NEGATIVE) 08/09/18 17:41 Urine Glucose (UA) Negative (NEGATIVE) 08/09/18 17:41 Urine Ketones 2+ (NEGATIVE) 08/09/18 17:41 Urine Blood 2+ (NEGATIVE) 08/09/18 17:41 Urine Nitrite Negative (NEGATIVE) 08/09/18 17:41 Urine Bilirubin 1+ (NEGATIVE) 08/09/18 17:41 Urine Urobilinogen 0.2 (0.2) 08/09/18 17:41 Ur Leukocyte Esterase Negative (NEGATIVE) 08/09/18 17:41 Urine Microscopic RBC 5-10 (0-2) 08/09/18 17:41 Ur Squamous Epith Cells 30-50 (0-5) 08/09/18 17:41 Urine Mucus 2+ (NOT PRESENT) 08/09/18 17:41 Plasma/Serum Alcohol < 10.0 mg/dL (0.0-50.0) 08/09/18 19:40 CPK/Troponin I Trends 08/09/18 08/10/18 08/10/18 Range/Units 16:09 00:35 08:32 Total Creatine Kinase 31.5 34.4 40.6 (30-135) U/L Troponin I < 0.012 < 0.012 < 0.012 (0.0000-0.120) ng/ml Urine culture too young Blood culture not yet back. Echocardiogram: Pending Stress Echo: Pending. (1) Chest pain Status: Acute Code(s): R07.9 - CHEST PAIN, UNSPECIFIED SNOMED Code(s): 35306706 (2) Chronic prescription benzodiazepine use Status: Acute Code(s): Z79.899 - OTHER ALF (CURRENT) DRUG THERAPY SNOMED Code(s): 016782423 (3) Marijuana use Status: Acute Code(s): F12.90 - CANNABIS USE, UNSPECIFIED, UNCOMPLICATED SNOMED Code(s): 617350172 (4) Former smoker Status: Acute Code(s): Z87.891 - PERSONAL HISTORY OF NICOTINE DEPENDENCE SNOMED Code(s): 1733219 (5) Anxiety Status: Acute Code(s): F41.9 - ANXIETY DISORDER, UNSPECIFIED SNOMED Code(s) : 20248113 (6) Nausea and vomiting Status: Acute Code(s): R11.2 - NAUSEA WITH VOMITING, UNSPECIFIED SNOMED Code (s): 87677572 (7) History of cardiac murmur Status: Acute Code(s): Z86.79 - PERSONAL HISTORY OF OTHER DISEASES OF THE CIRCULATORY SYSTEM SNOMED Code(s): 181258515 (8) Elevated blood pressure reading without diagnosis of hypertension Status: Acute Code(s): R03.0 - ELEVATED BLOOD-PRESSURE READING, W/O DIAGNOSIS OF HTN SNOMED Code(s): 898410337 (9) Lactic acidosis Status: Acute Code(s): E87.2 - ACIDOSIS SNOMED Code(s): 15040645 Plan: Nausea and Vomiting/ Elevated Lactic Acid: Repeated LA last night and this was just minimally above normal. She has not had any reported emesis until this am. Phenergan supp given today. BP is markedly better, too improved actually. I held all further meds. ?BZO withdrawal and zoloft withdrawal + pain from PUD vs gastroenteritis may have led to elevated BP w/o history of HTN. No home meds for BP, no continued meds in hospital as she almost became hypotensive. This am hovering at 92/68 HR 87. She is currently NPO for procedure. We again reviewed Gastroenteritis (viral and non viral), Gastritis, Colitis, IBS, antibiotic reaction to the augmentin. Discussed C. Diff with clinda again this am. Concerned for withdrawal from benzo, withdrawal from zoloft, stress/ anxiety. She has resumed home meds. Feels better than am but N/V prominently. Phenergan supp given. Monitor. Still plan to d/c home today if deisred. ETOH was negative. CBC okay but WBC did increase, which can happen with demargination with emesis. - Admit inpatient - CBC/CMP in am if remains in hospital - Urine culture await results. - Tele to continue - Await stress echo and echocardiogram this am - NPO until after procedure - Phenergan suppository per patient request. - Vitals q 8 hours - I+O Dental pain: She recently finished 10 days of oral augmentin. Oral clinda is reasonable. However risks of C. diff are highly possible for this abx. She is aware. - Oral clinda QID x 7 days. - Rinse with peroxide/water 50:50 2-3x daily at d/c. Chest pain (Acute): Suspect GI related pain but awaiting stress and Echocardiogram today. TI negative x 3. Low risks at this point. Stress test to be completed and if negative, no concerning findings on echo, she wants to go home. This is reasonable. - Stress test in am dobutamine - NPO post midnight. Anxiety (Chronic)/Chronic prescription benzodiazepine use (Chronic): Resumed home zoloft and valium, she was pleased wiht the resumption of meds. Continue to monitor. - Resume home zoloft - Resume home dose of valium - Monitor BP - ETOH was negative Elevated Blood pressure without history of HTN: Resolved. No more BP meds for now. Monitor. Folliculitis: Breast and inner thighs/suprpaubic region are improving. Continue Bactroban topically TID. Clindamycin for oral hygiene/concern for tooth pathology started. Bactroban under nails 1-2x daily. - Bactroban topical TID - Bactroban under nails daily - Clindamycin for tooth related concern 300mg QID x 7 days will cross cover Former smoker (Chronic) History of cardiac murmur (Chronic): No obvious murmur noted again today. Will get echo in am. Stress test in am. - Echocardiogram - Dobutamine stress test. Marijuana use (Acute): Marijuana Cessation discussed again today but briefly DVT Prophy: Lovenox 40mg subcutaneous. Code status: Full Code Activity: Up ad jaqueline. Diet: NPO until after procedure. Disposition: Estimated length of stay 1 days. Echo/stress today. Would like to make sure she can tolerate orals. Still think she has GI with GI pain as most likely etiology. She has negative enzymes x 3. Vitals are okay, CBC remains okay. Spent >35 minutes today on this patient rounding, reviewing tele , discussing/reviewing overnight labs, microbiology and reviewing MAR. Discussed care as listed above, Patient not here this am. BP is down. Hold further meds. Follicular process looks good/normal.
[2018-08-10] MEDS ORDERED: DOBUTAMINE 500 MG-D5W 250 ML 250 ML IV ONE (11:07)
[2018-08-10] MEDS ORDERED: ATROPINE SULFATE PFS ONE (11:07)
--- NOTE | 2018-08-10 12:53 | PCM.DC ---
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 THERAPY SNOMED Code(s): 616769995 (3) Marijuana use Status: Acute Code(s): F12.90 - CANNABIS USE, UNSPECIFIED, UNCOMPLICATED SNOMED Code(s): 844798018 (4) Former smoker Status: Chronic Code(s): Z87.891 - PERSONAL HISTORY OF NICOTINE DEPENDENCE SNOMED Code(s): 4295363 (5) Anxiety Status: Chronic Code(s): F41.9 - ANXIETY DISORDER, UNSPECIFIED SNOMED Code(s ): 52094977 (6) Nausea and vomiting Status: Acute Code(s): R11.2 - NAUSEA WITH VOMITING, UNSPECIFIED SNOMED Code (s): 00545771 (7) History of cardiac murmur Status: Chronic Code(s): Z86.79 - PERSONAL HISTORY OF OTHER DISEASES OF THE CIRCULATORY SYSTEM SNOMED Code(s): 519811844 (8) Elevated blood pressure reading without diagnosis of hypertension Status: Resolved Code(s): R03.0 - ELEVATED BLOOD-PRESSURE READING, W/O DIAGNOSIS OF HTN SNOMED Code(s): 624357752 (9) Lactic acidosis Status: Acute Code(s): E87.2 - ACIDOSIS SNOMED Code(s): 44794314 (10) Hypokalemia Status: Acute Code(s): E87.6 - HYPOKALEMIA SNOMED Code(s): 86888464 Reason for Hospitalization: Elevated BP w/o Dx HTN, Dental pain, chest pain, Nausea and vomiting, chronic benzo use missed 24 hours, chronic SSRI use missed 24 hours. Prognosis at Discharge: Good. She is stable, maximized health from current hospitalization. Condition at Discharge: Improved. She has not had any emesis/retching since this am. Phenergan is working. Stress dobutamine Echo and Echocardiogram negative. Mild regurg aortic and tricuspid per cardiology but not concerning. No other findings of concern. Urine culture too young, will f/u with this result. Pending BC as well. Medications at Discharge: Ambulatory Orders Medication Instructions Recorded Diazepam 10 mg PO QID #100 05/28/18 Estrogen,Starr/Me-Testosterone 1 each PO DAILY #30 07/30/18 [Eemt Ds 1.25-2.5 mg Tablet] Dicyclomine HCl [Bentyl] 10 mg PO PRN PRN 08/09/18 Sertraline HCl [Zoloft] 200 mg PO DAILY 08/09/18 Clindamycin HCl [Cleocin] 300 mg PO Q6HR 7 Days #28 cap 08/10/18 Mupirocin [Bactroban] 1 applic TP TID 7 Days #1 tube 08/10/18 Potassium Chloride [K-Dur] 20 meq PO DAILY 7 Days #7 tab 08/10/18 Promethazine HCl [Phenergan Supp] 12.5 mg RC Q6H PRN 5 Days #15 supp 08/10/18 Lab/Diagnostics: Laboratory Last Values WBC 9.65 K/ul (4.6-10.2) 08/10/18 08:32 RBC 4.32 10^6/ul (4.20-5.40) 08/10/18 08:32 Hgb 14.0 g/dl (12.0-16.0) 08/10/18 08:32 Hct 40.6 % (37.0-47.0) 08/10/18 08:32 MCV 94.0 fl (81.0-99.0) 08/10/18 08:32 MCH 32.4 pg (27.0-31.0) H 08/10/18 08:32 MCHC 34.5 (31.8-35.4) 08/10/18 08:32 RDW Coeff of Nataliia 13.0 % (11.6-14.8) 08/10/18 08:32 Plt Count 305 10^3/uL (140-440) 08/10/18 08:32 Immature Gran % (Auto) 0.2 % (0.0-5.0) 08/10/18 08:32 Neut % (Auto) 65.5 08/10/18 08:32 Lymph % (Auto) 26.3 (10.0-50.0) 08/10/18 08:32 [place] % (Auto) 7.0 (0-10) 08/10/18 08:32 Eos % (Auto) 0.8 % (0.0-7.0) 08/10/18 08:32 Baso % (Auto) 0.2 % (0.0-3.0) 08/10/18 08:32 Immature Gran # (Auto) 0.0 (0.0-1.0) 08/10/18 08:32 Neut # (Auto) 6.3 K/ul (2.0-6.9) 08/10/18 08:32 Lymph # (Auto) 2.5 K/uL (0.60-3.4) 08/10/18 08:32 [place]pine # (Auto) 0.7 K/uL (0.4-2.0) 08/10/18 08:32 Eos # (Auto) 0.1 K/ul (0.0-0.7) 08/10/18 08:32 Baso # (Auto) 0.0 K/uL (0-0.2) 08/10/18 08:32 Puncture Site Rr 08/09/18 17:24 O2 Saturation 96.0 % (95-100) 08/09/18 17:24 ABG pH 7.411 (7.35-7.45) 08/09/18 17:24 ABG pCO2 31.2 mmHg (35-45) L 08/09/18 17:24 ABG pO2 80.0 mmHg (85-100) L 08/09/18 17:24 ABG HCO3 19.8 (22.0-26.0) L 08/09/18 17:24 ABG Total CO2 21 (22.0-28.0) L 08/09/18 17:24 ABG Base Excess -5 (-2.0-2.0) L 08/09/18 17:24 FiO2 % 21.0 % 08/09/18 17:24 Sodium 138.6 mmol/L (134.5-145) 08/10/18 08:32 Potassium 3.08 mmol/L (3.5-5.1) L 08/10/18 08:32 Chloride 104.1 mmol/L (98-107) 08/10/18 08:32 Carbon Dioxide 22.5 mmol/L (22-30.0) 08/10/18 08:32 Anion Gap 15.08 08/10/18 08:32 BUN 13.7 mg/dL (7-17) 08/10/18 08:32 Creatinine 0.82 mg/dL (0.60-1.30) 08/10/18 08:32 Estimated GFR (MDRD) 72.00 mL/min 08/10/18 08:32 BUN/Creatinine Ratio 16.70 08/10/18 08:32 Glucose 107.5 mg/dL (74-106) H 08/10/18 08:32 Hemoglobin A1c 5.15 (4.0-6.0) 08/09/18 19:40 Lactic Acid 2.15 mmol/L (0.7-2.1) H D 08/09/18 19:40 Calcium 8.85 mg/dL (8.4-10.2) 08/10/18 08:32 Total Bilirubin 0.70 mg/dL (0.2-1.3) 08/10/18 08:32 AST 25.1 U/L (14-36) 08/10/18 08:32 ALT 17.5 U/L (0-35) 08/10/18 08:32 Alkaline Phosphatase 80.1 U/L (38-126) 08/10/18 08:32 Total Creatine Kinase 40.6 U/L (30-135) 08/10/18 08:32 Troponin I < 0.012 ng/ml (0.0000-0.120) 08/10/18 08:32 Total Protein 7.50 g/dL (6.3-8.2) 08/10/18 08:32 Albumin 4.31 g/dL (3.5-5.0) 08/10/18 08:32 Globulin 3.19 08/10/18 08:32 Albumin/Globulin Ratio 1.35 08/10/18 08:32 Procalcitonin < 0.05 ng/mL (0.09) 08/09/18 16:09 Urine Color Yellow (YELLOW) 08/09/18 17:41 Urine Clarity Clear (CLEAR) 08/09/18 17:41 Urine pH 5.5 (5-9) 08/09/18 17:41 Ur Specific [place] >=1.030 (1.005-1.030) 08/09/18 17:41 Urine Protein 2+ (NEGATIVE) 08/09/18 17:41 Urine Glucose (UA) Negative (NEGATIVE) 08/09/18 17:41 Urine Ketones 2+ (NEGATIVE) 08/09/18 17:41 Urine Blood 2+ (NEGATIVE) 08/09/18 17:41 Urine Nitrite Negative (NEGATIVE) 08/09/18 17:41 Urine Bilirubin 1+ (NEGATIVE) 08/09/18 17:41 Urine Urobilinogen 0.2 (0.2) 08/09/18 17:41 Ur Leukocyte Esterase Negative (NEGATIVE) 08/09/18 17:41 Urine Microscopic RBC 5-10 (0-2) 08/09/18 17:41 Ur Squamous Epith Cells 30-50 (0-5) 08/09/18 17:41 Urine Mucus 2+ (NOT PRESENT) 08/09/18 17:41 Plasma/Serum Alcohol < 10.0 mg/dL (0.0-50.0) 08/09/18 19:40 CT of chest w/o mild COPD. DDD w/in spine. CT of Abd/pelvis w/o: Lung bases clear, DDD L4-5. Normal pelvis. No acute findings in abd/pelvis, small hepatic cyst. S/P Hysterectomy, Susannah. Simple left liver cyst. CT scan of the soft tissues neck w/o contrast: No acute abnl of neck to account for patient sx. Scattered DDD w/in cervical spine. Paranasal mucousal thickening. Echocardiogram: Normal LVEF/contractility per cardiology. Mild aortic and tricuspid regurg. Stress: Maximal heart rate w/o changes. Negative stress. Education Provided to Patient and Family: 1. Tobacco Cessation 2. Marijuana Cessation 3. Gastroenteritis 4. Benzodiazepine use Follow-ups: 1. Week with PCP or with Dr. Dominique who is providing patient meds regularly. Disposition: HOME SELF-CARE Hospital Course: 58 yo WF admitted 08/09/18 with Chest pain, dental pain, Nausea/vomiting, missed 24 hours SSRI, 24 hours BZO despite daily use of zoloft 200mg total and valium [address] Dominique provides these rx. Last OV 07/30/18 w/ Dr. Dominique had CC of Nasal congestion/ear congestion, refill of meds. She got her Valium 10mg QID #100, Est/test, zoloft 100 BID refilled, had her right ear cerumen removed via suction and was dx w/ vertigo, intractable PADGETT and given augmentin 875/125 1 po BID x 10 days, refills as listed above and instructed to return call in 3 months. She came into ER on 08/09/18 1500. CC of N/V, chest pain HTN and chest discomfort. 1 day history constant pain, moderate severity initially reducing to mild severity. This persisted. Pain was located midsternal, pain radiated into neck/throat. Aching character, nothing made this worse, spontaneous resolution noted in ER. Reported nausea, cough, no diaphoresis, + vomiting, no fever, no palpitations, no hemoptysis, no back pain, no abd pain, no dizzines, no SOA, no leg/calf pain/swelling. She has had something liek this beore. Malaise, throat pain, chest pain. History of marijuana use. Phys exam in ER noted well appearing, no pain/distress, normal CV, normal Resp exam. Normal MSK , normal Neuro and normal psych. CT of chest w/o mild COPD. DDD w/in spine. CT of Abd/pelvis w/o: Lung bases clear, DDD L4-5. Normal pelvis. No acute findings in abd/pelvis, small hepatic cyst. S/P Hysterectomy, Susannah. Simple left liver cyst. CT scan of the soft tissues neck w/o contrast: No acute abnl of neck to account for patient sx. Scattered DDD w/in cervical spine. Paranasal mucousal thickening. She just completed 10 days course of augmentin as listed above. RE-evaluated by Dr. Conrad 1600 improved noted VS stable, pain level 0, no issues. Re-eval 18:18 status listed as improved, VS stable (but vitals within computer noted that her BP remained >180SBP). REviewed labs from ER. CBC WNL WBC 6.76, Hgb 14.8, hct 43.7, plt 291. CMP normal sodium 139.7, K + nl 3.93, cl 102,8, co2 20.4, gap 20.43. BUN 17.2, cr 0.81. GFR 73. Glucose 146.2. Calcium normal 9.56, ast 30, alt 22.7, alk phos nomfal 91.9. CK noraml 31.5. Troponin #1 was negative. Procalcitonin was negative. Blood cultures ordered/pending. Lactic acid was elevated at 2.86. Urine Mildly concentrated with SG 1.030, 2+ glu, 2+ ketones, 2+ blood, LE negative, squam 30-50, 2+ mucus. We will send urine for culture. ABG in ER showed O2 96%, pH 7.411, pc02 31.2, po2 80, hc03 19.8. ABG favors primary respiratory alkalosis chronic with secondary metabolic acidosis. No mention of ETOH. Due to markedly elevated BP she was given lisinopril 40mg stat, morphine sulfate 4mg im stat, zofran 4mg IM stat and then norvasc 5 stat. Vitals in ER reviewed temp is 100 and technically not febrile. Pulse 68, RR 18, BP 181/107, pulse ox 97%. Repeated at 17:46 and pulse 78, RR 13, BP 183/112, pulse ox 96%. Repeated BP again 17:49 and 189/95. She was admitted to inpatient. I will add clindamycin 300 QID, risks for C. Diff d/w patient. She was admitted to room 109-1. I reviewed nursing notes from ER, Dr. Conrad note, talked w/ Dr. Conrad personally , reviewed imaging, labs, previous note from DR. Dominique. In room she was very anxious, talked about of father and how this has been hard on her. NO travel, no sick contacts. Reviewed PUD, reviewed Gastroenteritis. Story in hospital bed suggests stress, anxiety, back pain, muscle aches, chills, sweating. Sx started 1 day prior to admit. We talked about her marijuana and she denied that a cause. Zofran did not help. She noted she had same issue historically and wanted phenergan. This was ordered. Home meds resumed. Noted cardiac cath 3 in [place]. She notes that she had murmurs valvular leaks. 58 yo WF hospital day #2 N/V (72 hours decreased PO intake and N/V), Chest pain , elevated blood pressure dental pain, follicular rash. Labs reviewed this am showed continued normal CBC with WBC 9.65 up from 6.76. Hgb stable 14.0 compared to 14.8 yesterday. Plt 305 up from 291. She has received NS 75ml/hour , lovenox 40 subcut daily. SHe presented with BP of 181/107, 183/112, 189/95 and was given 40mg lisinopril in ER and then 5 of norvas. I ordered 5 more for this am if she remained >160 SBP. After morphine in ER, zofran, resuming home doses of her zoloft and valium, her BP dropped to 86/58 at 0039 and then increased to 92/68 at 05:08. I will not give any more BP meds while here. She likely had elevated BP due to some withdrawal from her SSRI and BZO. She has remained afebrile throughout entire evaluation (100 in ER). Telemtry strips reviewed and agree that she has essentially been in SR entire stay, ?BBB this am. Chest pain present at admit, N/V multiple times before hospital, now again this am coughing and emesis are present. She feels subjectively hot. CMP this am showed mildly low K+ that I will d/c her home with PO (This was not added to fluids this am). She has had 3 sets of cardiac enzymes all negative <0.012 for TI and CK up to 40.6, but okay. Repeat lactic acid was 2.15 (normal 2.1). ETOH was negative serum. Urine culture too young to read. Blood cultures have not returned. I have started clinda for her tooth pain. A1C was 5.15 and normal. Other than N/V now, she seems to be doing better. Folliculitis is already improving with bactroban. No additional imaging at this time. Pain in chest is a 2/10 and achy/crampy, which may be from the N/V. She has had this before. She was told to see GI then but never went. Stomach contents in Emesis , non bloody. ?PUD, ?Gastritis, ?Gastroenteritis. Vitals stable, Uout measured once at 500 provided 0.87ml/kg/hour output which is reasonable. I have no other concerning issues at this time. BP has recovered and is improving. She is due for stress and stress echo this am. When those are complete and negative , we will d/c home with rx for phenergan supp and f/u with PCP this coming week. She wants d/c wants to work tomorrow. Notes stress is up and she carries stress in her abdomen. jeff not present today. Stress and echo returned normal at 08/10/18 12:45. She was set for d/c from hospital. Vital Signs - 24 hr 08/09/18 08/09/18 08/09/18 15:04 17:46 17:49 Temperature 100 F H Pulse Rate 68 78 Pulse Rate [ Apical] Respiratory 18 13 Rate Blood Pressure 181/107 H 183/112 H 189/95 H O2 Sat by Pulse 97 96 Oximetry 08/09/18 08/09/18 08/10/18 18:20 20:05 00:39 Temperature 97.7 F Pulse Rate 76 Pulse Rate [ 78 Apical] Respiratory 20 Rate Blood Pressure 168/83 H 86/58 L O2 Sat by Pulse 98 Oximetry 08/10/18 05:08 Temperature 97.5 F L Pulse Rate 87 Pulse Rate [ Apical] Respiratory 18 Rate Blood Pressure 92/68 O2 Sat by Pulse 96 Oximetry Constitutional: Appearance-Sitting up in bed, vomiting. She had emesis basin and had green/yellow/frothy/mucoid stomach contents/mucus. No respiratory distress, Consistent with stated age. Orientation- Oriented x 3, alert Build and Nutrition-[normal] General- Patient is pleasant and cooperative with the interview and exam. Talked about noy, aqueducts, talked about history as she likes history. Integumentary: General-No generalized rashes, groin follicular eruption bilateral inner thigh and suprapubic region improving already with the bactroban. She has improvement left underbreast region as well. Normal skin turgor. ENMT: Nasal mucosa- No bleeding noted and no ulcerations observed. [place], moist. Turbinates non boggy. Lips- normal color, moist without cracks/lesions Oral Cavity/Palate- hard/soft palate intact without lesions, oral mucosa pink and moist. Dentition assessed and upper teeth appear capped. Lower teeth pain along mandibular molar. automatic lathe tender today with mild LN along left anterior cervical chain. No obvious sores, no lesions. and discussed appropriate oral care. Tongue normal midline. Oropharynx- no pharyngeal erythema, Uvula midline. No post nasal drip. No exudate. Salivary glands- Non tender to palpation CHEST/LUNG: Inspection- symmetric chest wall no pectus deformity. Normal effort , no distress, no use of accessory muscles. Palpation- nontender sternum, ribline. No abnormal pulsations. Auscultation- Breath sounds normal throughout all lung krishnamurthy. Normal tracheal sounds, Normal bronchial sounds overlying sternum, Bronchovessicular sounds normal between scapulae posteriorly, Normal vessicular breath sounds heard throughout periphery. Lungs are clear today. Adventitious sounds- No wheezes, rales, rhonchi. CARDIOVASCULAR: Palpation/Percussion- Normal PMI, no palpable thrill. Auscultation- Still w/o murmur appreciable on exam. Regular rate and rhythm. No murmur noted in sitting, supine positions. PMI not displaced. MIldly Prolonged S1 sounds and muffled S2 but no obvious murmur. No clicks, no fixed split etc. Extremities- no digital clubbing, cyanosis, edema, increased warmth. ABDOMEN: Inspection- normal and no visible pulsations. Normal contour. Auscultation- Bowel sounds hyperactive, no abdominal bruits. Palpation/ Percussion- soft, non-tender, no rebound tenderness, no rigidity (guarding), no jar tenderness, no masses. Liver-no hepatomegaly, Spleen no splenomegaly, Hernias- none. Rectal declined by patient. Peripheral Vascular: Upper extremity Left- Normal temperature with pink nailbeds and no ulcerations. Upper extremity Right- Normal temperature with pink nailbeds and no ulcerations. Lower extremity- Normal temperature with pink nailbeds and no ulcerations. DP pulses 2+ bilaterally. Pedal hair intact. Normal capillary refill. Edema- No edema. Musculoskeletal: Generalized-No generalized swelling or edema of extremities, no digital clubbing or cyanosis, neurovascularly intact all four extremities. Neurological: General- Moves all 4 extremities symmetrically. Symmetrical face and body posture. Cranial nerves- individually evaluated II-XII and intact. PERRLA, Normal EOMI, visual/special senses appear intact, Face is symmetrical and normal sensation/movement, normal tongue, normal strength/posture of neck musculature. Neuropsych: Oriented- Person, place, time. (AAOx3), Mood/affect- sad and cycling. ?morphine effect from ER. Able to articulate well, good use of language, pleasant. Speech-Normal speech, normal rate, normal tone, normal use of language, volume and coherence. Thought content- normal with ability to perform basic computations and apply abstract thought/reason. Associations- intact, no SI/HI, no hallucinations, delusions, obsessions. Judgment/insight- Appropriate. Memory-Recall intact, remote and recent memory intact. Knowledge- Age appropriate fund of knowledge, concentration and attention span normal. Lymphatic: Head/Neck- normal size and non tender to palpation. Plan: 1. Need to follow up with primary care provider in next 5-7 days. Please call your Family Physician as soon as possible to schedule a follow-up appointment. 2. Fluid hydration 1/2 strength apple juice is best rehydration solution. 3. Marijuana cessation encouraged 4. Continued smoking cessation encouraged 5. Take zoloft and valium as provided by Dr. Dominique. 6. Stress test negative, echocardiogram negative. 7. Potassium was a little low. I will provide potassium by mouth for next 7 days. Please follow-up with primary provider and have them repeat potassium evaluation in 1 week. 8. Return to ER if worsening. 9. Advance diet as tolerated 10. Activity as tolerated. 11. Meet with dentist as soon as possible. 12. Finish antibiotic. Risks of C. Diff were discussed at length. 13. Phenergan suppository has been given to you for nausea. Caution with driving vehicle. >30 minutes spent on discharge patient from hospital. Stress/echo reviewed with patient. Discussed labs. Nausea/vomiting better post phenergan supp. I will d/c with rx for these as well as 7 days of K+Cl-. Pending labs: Pending Blood culture Pending Urine culture
[2018-08-10] MEDS ORDERED: LOVENOX SUBCUT SCH (21:00)
--- NOTE | 2018-08-11 12:35 | DOBSTECHO ---
Date of Test: 08/10/18 Ordering Physician: DR. LILIANA WANG Smoking History: QUIT 6 MONTHS AGO Reason for Examination: CHEST PAIN, HEART MURMUR, HTN Current Medications: ZOLOFT, BENTYL, DIAZEPAM Height: 67" Weight: 160 LBS Target Heart Rate: 138/154 S-T Segment Stage Time HR BPM BP MMHG Rhythm +/- Elevation Depression Symptoms Control Sitting 76 190/90 SR X NONE Dobutamine 250mg/D5W 5cmg/KG/mn 10cmg/KG/mn 3:00 98 180/102 SR X NONE 15cmg/KG/mn 2:00 100 SR X NONE 20cmg/KG/mn 2:00 134 178/88 SR X NONE 25cmg/KG/mn 30cmg/KG/mn 35cmg/KG/mn 40cmg/KG/mn 3 MIN POST INFUSION z 122 190/94 SR X NONE 9 MIN POST INFUSION z 83 178/102 SR X NONE DURATION OF INFUSION 7:01 MAXIMUM HEART RATE REACHED 140 BPM 93% OXYGEN SATURATION ON ROOM AIR WITH DOBUTAMINE INFUSION Interpretation: 1. TEST NEGATIVE FOR ISCHEMIC ST-T WAVE CHANGES 2. NO CHEST PAIN OR DISCOMFORT 3. NORMAL LEFT VENTRICULAR CONTRACTILITY--RESTING AND WITH DOBUTAMINE INFUSION MTDD
--- NOTE | 2018-08-11 12:50 | ECHO2D ---
Date of Exam: 08/10/18 Ordering Physician: DR. LILIANA WANG Room #: 109 Reason for Echo: CHEST PAIN, H/O HEART MURMUR, HTN, VALVULAR DISEASE M-Mode Normal Adult Results LV Dimensions Normal Adult Results AoV Opening excursions >1.6 >1.6 LVEDD-base- 3.5-5.8 4.6 Ao root dimensions 2.0-3.7 3.5 LVESD-base- 3.1-4.6 L. Atrium dimensions 1.9-3.8 3.8 Post. Wall thickness 0.8-1.1 1.1 IV septum (thickness) 0.7-1.2 1.2 Post. Wall excursion 0.72-1.3 NORMAL Septal motion NORMAL Systolic motion R. Ventricular cavity 1.5-2.0 NORMAL LVEF 60% 55% Paradoxical septal wall motion NORMAL 2-D : 2-D M Mode Echocardiogram was performed using apical four chamber and left parasternal long and short axis views. Mitral, tricuspid and aortic valves appear to be normal. Contractility of the left ventricle seems to be normal, so is the cavity size. Left atrial cavity size and aortic root appear to be normal. There is no pericardial effusion. There is no thrombus noted in the left ventricular or left aortic cavity. No mitral valve prolapse noted. COLOR FLOW: SCREENING--MILD TO MODERATE AORTIC REGURGITATION, TRIVIAL TO MILD MITRAL REGURGITATION M-MODE: MV: NORMAL AV: NORMAL TV: NORMAL PV: CHAMBER SIZE: NORMAL WALL MOTION: NORMAL PERICARDIUM: NORMAL INTERPRETATION: 1. BORDERLINE LEFT VENTRICULAR HYPERTROPHY 2. NORMAL LEFT VENTRICULAR CONTRACTILITY 3. NORMAL LEFT VENTRICLE AND LEFT ATRIAL SIZE 4. MILD TO MODERATE AORTIC REGURGITATION, TRIVIAL TO MILD MITRAL REGURGITATION MTDD
--- NOTE | 2018-08-11 12:53 | ECHOSTRESS ---
Date of Exam: 08/10/18 Ordering Physician: DR. LILIANA WANG Reason for Echo: CHEST PAIN, H/O HEART MURMUR, HTN, VALVULAR DISEASE M-Mode Normal Adult Results LV Dimensions Normal Adult Results AoV Opening excursions >1.6 LVEDD-base- 3.5-5.8 Ao root dimensions 2.0-3.7 LVESD-base- 3.1-4.6 L. Atrium dimensions 1.9-3.8 Post. Wall thickness 0.8-1.1 IV septum (thickness) 0.7-1.2 Post. Wall excursion 0.72-1.3 Septal motion Systolic motion R. Ventricular cavity 1.5-2.0 LVEF 60% Paradoxical septal wall motion 2-D: NORMAL LEFT VENTRICULAR CONTRACTILITY--RESTING AND WITH DOBUTAMINE INFUSION M-MODE: MV: AV: TV: PV: CHAMBER SIZE: WALL MOTION: NORMAL LEFT VENTRICULAR CONTRACTILITY--RESTING AND WITH DOBUTAMINE INFUSION PERICARDIUM: INTERPRETATION: 1. NORMAL LEFT VENTRICULAR CONTRACTILITY--RESTING AND WITH DOBUTAMINE INFUSION MTDD
== END 2018-08-10 13:15 | disposition home or self-care (01) | DRG 305 ==
LOC: ED 15:03 → MEDSURG A 18:26
PROVIDERS: ADMIT Family Medicine; ATTEND Family Medicine
DX: I10 Essential (primary) hypertension (principal); E87.2 Acidosis; E87.6 Hypokalemia; F12.90 Cannabis use, unspecified, uncomplicated; F41.9 Anxiety disorder, unspecified; R07.9 Chest pain, unspecified; R05 Cough; R53.81 Other malaise; R07.0 Pain in throat; R03.0 Elevated blood-pressure reading, without diagnosis of hypertension; Z79.899 Other long term (current) drug therapy; Z87.891 Personal history of nicotine dependence; Z86.79 Personal history of other diseases of the circulatory system
CPT/HCPCS: 36415; 80053; 80307; 81001; 82550; 82803; 83036; 83605; 84145; 84484; 85025; 87040; 87086; 87651; 93005; 93010; 96374; 96375; 99284

== ENCOUNTER 2018-08-19 14:18 | Outpatient (CLI) ==
--- NOTE | 2018-08-19 14:36 | DI ---
EXAM: Two views of the chest. History: Chest pain. Comparison: Chest radiograph 01/12/2009, chest CT 08/09/2018 Findings: Heart size is normal. No focal consolidation. No appreciable pleural fluid and no pneumo thorax. No acute osseous abnormalities. Impression: No acute cardiopulmonary process
== END 2018-08-19 14:19 | disposition home or self-care (01) ==
LOC: FCC-LAB 14:18
PROVIDERS: ATTEND Family Medicine
DX: R05 Cough (principal); Z20.89 Contact with and (suspected) exposure to other communicable diseases; Z09 Encounter for follow-up examination after completed treatment for conditions other than malignant neoplasm
CPT/HCPCS: 36415; 80053; 85025